=== PATIENT | female | born 1960 | race Caucasian/White ===

== ENCOUNTER → 2019-05-08 13:28 | Outpatient (CLI) | payer OTHER, SELFPAY ==
--- NOTE | 2019-05-08 | DI.MRI.S_ITS ---
PROCEDURE: MR HAND LT WO/W CON INDICATIONS: Left wrist swelling. Left hand pain. Arthritis TECHNIQUE: Coronal and axial T1 spin echo and T2 fast spin echo with fat saturation. Post-contrast coronal and axial T1 spin echo with fat saturation images through the left hand and wrist. COMPARISON: None. FINDINGS: Image quality: Excellent. Bones and cartilage: There is no marrow edema. No fracture or dislocation. Intraosseous cyst formation involving radial aspect of second metacarpal neck is seen. No gross bony erosive changes or area of abnormal intraosseous enhancement. Synovium: There is mild edema and contrast enhancement surrounding the extensor carpi ulnaris tendon at the level of the proximal carpal rows suggestive of tenosynovitis. No other area of abnormal soft tissue enhancement is seen. Soft tissues: Rest of the left wrist tendons and ligaments are grossly intact. IMPRESSION: 1. Intraosseous cyst formation involving left second metacarpal head as above, no abnormal intraosseous enhancement. No definite bony erosive changes. 2. Finding is suggestive of tenosynovitis involving the extensor carpi ulnaris tendon at the level of proximal carpal row. No other area of abnormal soft tissue enhancement is seen. Dictated by: Ronen Mayen M.D. on 05/08/2019 at 18:10 Approved by: Ronen Mayen M.D. on 05/08/2019 at 18:15
--- NOTE | 2019-05-08 | DI.MRI.S_ITS ---
PROCEDURE: MR HAND RT WO/W CON INDICATIONS: Right hand pain. Arthritis TECHNIQUE: Coronal and axial T1 spin echo and T2 fast spin echo with fat saturation. Post-contrast coronal and axial T1 spin echo with fat saturation images through the right hand and wrist. COMPARISON: None. FINDINGS: Image quality: Excellent. Bones and cartilage: The examination of right hand and wrist osseous structures shows no marrow edema. No fracture or dislocation. No gross bony erosive changes are noted. No area of abnormal intraosseous enhancement. Synovium: No significant joint effusion is seen. There is mild thickening involving extensor pollicis longus tendon, extensor digitorum and indices tendons as well as extensor digiti minimi tendon over dorsal aspect of distal carpal row with surrounding soft tissue edema and enhancement suggestive of tenosynovitis. Soft tissues: No evidence of extensor or flexor tendon rupture. No other area of abnormal enhancement. Visualized wrist ligaments are grossly intact. IMPRESSION: 1. Findings suggestive of low-grade tenosynovitis over dorsal aspect of extensor tendons as described above. 2. No marrow edema. No gross bony erosive changes. No evidence of tendon or ligament rupture. Dictated by: Ronen Mayen M.D. on 05/08/2019 at 18:18 Approved by: Ronen Mayen M.D. on 05/08/2019 at 18:22
== END ==
PROVIDERS: PCP Family Medicine; Visit Provider Internal Medicine Rheumatology
DX: M25.432 Effusion, left wrist (principal); M79.642 Pain in left hand; M79.641 Pain in right hand
CPT/HCPCS: 73220; A9579

== ENCOUNTER → 2019-07-04 15:53 | Outpatient (CLI) | payer OTHER, SELFPAY ==
--- NOTE | 2019-07-04 | DI.MRI.S_ITS ---
PROCEDURE: MR KNEE RT WO CON INDICATIONS: RT KNEE PAIN TECHNIQUE: Noncontrast sagittal PD fast spin echo and T2 fast spin echo with fat saturation, sagittal 3-D FLASH with fat saturation; coronal T1 spin echo and PD fast spin echo with fat saturation, and axial PD fast spin echo with fat saturation through the knee. COMPARISON: [facility], CR, XR KNEE 4+ VIEWS BILATERAL, 03/30/2019, 10:26. FINDINGS: Image quality: Excellent. Menisci: Medial meniscus is intact. There is amorphous high signal intensity within the free edge of the lateral meniscal body, demonstrate superior and inferior articular surface extension, indicating degenerative tearing. Cruciate ligaments: The anterior and posterior cruciate ligaments appear intact. High T2 signal intensity along the course of the anterior cruciate ligament is present. Medial structures: The medial collateral ligament appears intact. Visualized portions of the pes anserinus tendons appear normal. No abnormal bursal fluid. Lateral structures: The lateral collateral ligament, long and short heads of the biceps femoris tendon appear intact. The popliteus tendon appears normal. Iliotibial band appears normal. Anterior structures: The quadriceps and patellar tendons appear intact. Patellar alignment is normal. Mild T2 signal elevation within the patellar tendon at the patellar insertion site. No femoral trochlear dysplasia or ventral trochlear prominence. No edema in the infrapatellar fat pad. Bones and cartilage: No bone marrow contusions or fractures. There is mild tricompartmental periarticular osteophyte formation. There is moderate diffuse articular cartilage loss overlying the weightbearing aspects of the medial femoral condyle and medial tibial plateau. Severe articular cartilage loss overlies the patellar apex, as well as the adjacent aspects of the medial and lateral patellar facets. Joint space: There is a small knee joint effusion and a trace Morrison's cyst. Small ganglion cyst along the popliteus. Normal appearing synovial plicae are incidentally noted. IMPRESSION: 1. Tricompartmental osteoarthritis with associated articular cartilage loss. 2. Lateral meniscal tearing. 3. Mild patellar tendinitis. 4. Small knee joint effusion. Trace Morrison's cyst. 5. Myxoid degeneration of the anterior cruciate ligament. Dictated by: Max Fink M.D. on 07/04/2019 at 16:32 Approved by: Max Fink M.D. on 07/04/2019 at 16:35
== END ==
PROVIDERS: PCP Family Medicine; Visit Provider Family Medicine
DX: M25.561 Pain in right knee (principal); M17.11 Unilateral primary osteoarthritis, right knee; M76.51 Patellar tendinitis, right knee; M25.461 Effusion, right knee
CPT/HCPCS: 73721

== ENCOUNTER → 2020-12-10 13:49 | Outpatient (CLI) | payer OTHER, SELFPAY ==
[2020-12-10 14:11] LABS: COVID19 -Nasal RAPID Negative (Negative)
== END ==
PROVIDERS: PCP Family Medicine; Visit Provider Surgery
DX: Z01.812 Encounter for preprocedural laboratory examination (principal); Z20.822 Contact with and (suspected) exposure to COVID-19
CPT/HCPCS: 87635; C9803

== ENCOUNTER 2020-12-11 14:27 | Day surgery (SDC) | payer OTHER, SELFPAY ==
[2020-12-11 15:27] VITALS: BP 151/83; PULSE 76; RESP 18; TEMP 36.4; O2SAT 99; BMI 28.8
[2020-12-11] MEDS: LACTATED RINGERS 1,000 ML 200 ML IV (16:00)
--- NOTE | 2020-12-11 16:04 | PM.PREOP ---
Pre-operative Note Interval Note History & Physical reviewed/Exam performed by Physician: Yes Changes to H&P: No
[2020-12-11] MEDS: MIDAZOLAM 5 MG/5 ML VIAL IV (16:49)
[2020-12-11] MEDS: fentaNYL 250 MCG/5 ML INJ IV (16:49)
--- NOTE | 2020-12-11 16:49 | P.OP.ENDO_ITS ---
Operative Date/Time/Diagnoses Date of procedure: 12/11/20 Time of procedure: 16:50 Pre-op diagnosis: Rectal bleeding Post-op diagnosis: same Procedure & Clinicians Study performed: Colonoscopy, hemorrhoidal banding Same procedure as scheduled: Yes Indications: Rectal bleeding, family history of colon Surgeon: Jarrett Berry Procedure Notes Procedure in detail: Medications: Conscious sedation using 10mg IV midazolam and 300mcg IV of fentanyl The history and physical was performed/updated and the patient is ASA class is 2. The procedure was discussed in detail with the patient. Potential risks complications including infection, bleeding, missed diagnosis, perforation, need for surgery, and were explained. Their questions were answered and informed consent was obtained. Patient was brought to the procedure room and placed standard monitoring equipment. The patient's vital signs were monitored continuously throughout the entire procedure. Prior to starting time-out was performed. The patient was placed in the left lateral recumbent position. Procedural sedation was administered. Examination began with a thorough inspection of the perianal area there was no evidence of fissures, fistulae, external hemorrhoids or cutaneous malignancy. The colonoscopy scope was then placed into the anal canal and was advanced to the cecum, which was identified by the ileocecal valve, the appendiceal orifice and the confluence of the taenia. The scope was then slowly withdrawn examining colon thoroughly in all directions, irrigating it of any residual stool. 1. No masses polyps 2. Sigmoid diverticulosis 3. Grade 3 internal hemorrhoids The right anterior and left lateral hemorrhoidal pedicles of freely prolapsed and were quite friable. They were grasped with an Allis elevated and then the base was doubly ligated. Patient tolerated the procedure well. The patient tolerated the procedure well. They will be discharged once criteria are met. The prep was of good/excellent quality. The withdrawl time was 7 min utes. The sedation time was 33minutes. Complications: none Impression: Diverticulosis, hemorrhoids Post-procedure Recommendations: Colonscopy in 5 years and High fiber diet Disposition: same day surgery
[2020-12-11 16:51] VITALS: BP 171/94; PULSE 73; RESP 17; TEMP 36.9; O2SAT 98
[2020-12-11 16:56] VITALS: BP 173/92; PULSE 70; RESP 22; O2SAT 97
[2020-12-11 17:01] VITALS: BP 159/86; PULSE 72; RESP 15; O2SAT 100
[2020-12-11 17:05] VITALS: BP 158/87; PULSE 77; RESP 13; TEMP 37.7; O2SAT 99
[2020-12-11 17:12] VITALS: BP 159/89; PULSE 76; RESP 16; TEMP 36.7; O2SAT 100
== END 2020-12-11 17:22 | disposition home or self-care (01) ==
PROVIDERS: PCP Family Medicine; Referring Provider Surgery; Visit Provider Surgery
PROC: 0DJD8ZZ Inspection of Lower Intestinal Tract, Via Natural or Artificial Opening Endoscopic (ICD-10-PCS; CPT 45378; principal; 2020-12-11 16:00)
DX: K57.30 Diverticulosis of large intestine without perforation or abscess without bleeding (principal); K64.2 Third degree hemorrhoids
CPT/HCPCS: 46221; 45378; J2250; J3010

== ENCOUNTER 2020-12-18 12:57 | Emergency (ER) | payer OTHER, SELFPAY ==
[2020-12-18] VITALS (7 sets, daily range): BP systolic 154–181; BP diastolic 74–86; PULSE 71–88; RESP 15–20; TEMP 37; O2SAT 96–100; BMI 28.8
[2020-12-18 13:28] LABS: Add Manual Diff / Slide Review NO; Basophils Absolute Auto 100 /uL (0-100); Basophils Percent Auto 0.9 % (0-2); Eosinophils Absolute Auto 100 /uL (0-450); Eosinophils Percent Auto 1.9 % (2-4); Hematocrit 32.4 % (36-46); Hemoglobin 10.6 g/dL (12.0-16.0); Lymphocytes Absolute Auto 1000 /uL (1100-4500); Lymphocytes Percent Auto 18.1 % (25-40); Mean Corpuscular HGB Conc 32.7 % (30-36); Mean Corpuscular Hemoglobin 27.7 PG (26-34); Mean Corpuscular Volume 84.8 fL (80-100); Monocytes Absolute Auto 400 /uL (0-900); Monocytes Percent Auto 7.3 % (3-14); Neutrophils Absolute Auto 4000 /uL (1500-7000); Neutrophils Percent Auto 71.8 % (50-75); Platelet Count 369 X10^3/uL (150-400); Red Blood Cell Count 3.82 X10^6/uL (4.0-5.2); Red Cell Distribution Width 13.6 % (11.6-14.8); White Blood Cell Count 5.6 X10^3/uL (4.5-11.0)
--- NOTE | 2020-12-18 13:31 | ED_ITS ---
HPI - GI Bleed <TRISTAN Gongora - Last Filed: 12/18/20 15:32> General Chief complaint: GI Bleed Stated complaint: colonoscopy last week, still bleeding rectally Time Seen by Provider: 12/18/20 13:14 Source: patient and family Mode of arrival: Ambulatory Limitations: no limitations History of Present Illness HPI Narrative: The patient is a 6-year-old female current everyday smoker who presents with her for chief complaint of GI bleeding. She states that she had a colonoscopy last as well as hemorrhoid banding. She states that the hemorrhoid bands fell out the next day so there are not specially helpful. She denies any fevers muscle aches or chills. She complains of abdominal cramping, but states ?nothing significant?. She does note that she has not had a good bowel movement for the past week, she initially increase MiraLax etcetera, but then spoke to a account specialist who states that it is ?poison to her system? so she stopped using that and started using salts instead. She notes that she is passing blood clots. She states that she is feeling several l arge menstrual pads per day. She does note some lightheadedness and dizziness yesterday. Denies any chest pain or shortness of breath. She states that she has not been dizzy for a few days does not particularly concerned about that. Related Data Home Medications Medication Instructions Recorded Confirmed ascorbate calcium (vitamin C) 500 500 mg PO DAILY 11/24/20 12/11/20 mg tablet iodine 150 mcg tablet 150 mcg PO DAILY 11/24/20 12/11/20 tramadol 50 mg tablet 50 mg PO BID PRN 11/24/20 12/11/20 vitamin B complex 1 tab PO DAILY 11/24/20 12/11/20 vitamin E 200 unit capsule 200 unit PO DAILY 11/24/20 12/11/20 zinc 50 mg tablet 50 mg PO BID 11/24/20 12/11/20 acetaminophen 1,000 mg PO BID 12/11/20 12/11/20 Allergies Allergy/AdvReac Type Severity Reaction Status Date / Time codeine Allergy Rash Verified 12/18/20 13:09 Review of Systems <TRISTAN Gongora - Last Filed: 12/18/20 15:32> Review of Systems Narrative: GENERAL: Denies chills, fatigue, malaise, fever, sweats. HEENT: Denies sinus pain, ear pain, sore throat, difficulty swallowing, dizzine ss. RESPIRATORY: Denies dyspnea, cough, wheezing, hemoptysis, sputum. CARDIOVASCULAR: Denies chest pain, palpitations, orthopnea, edema, GASTROINTESTINAL: See HPI : Denies dysuria, frequency, incontinence, hematuria, urinary retention. MUSCULOSKELETAL: denies weakness, joint pain, or bony pain SKIN: Denies rash, skin lesions, or other NEUROLOGIC: Denies weakness, headache, numbness, change in speech, confusion, seizures, incoordination. PSYCHIATRIC: No concerning psychosocial issues. 12 point review of systems is negative except for those stated above Patient History <TRISTAN Gongora - Last Filed: 12/18/20 15:32> Medical History Arthritis Hearing loss History of sinus problem Surgical History History of colonoscopy History of dental surgery Family History Father Colon cancer Hypertension Mother Hypertension Son Gallstones Social History marital status: household members: spouse occupational status: employed Smoking Status: Current every day smoker alcohol intake: never substance use type: does not use Smoking Status: Current every day smoker tobacco type: vaping alcohol intake frequency: holidays/special occasions only Substance Use Type: does not use Exam <TRISTAN Gongora - Last Filed: 12/18/20 15:32> Narrative Exam Narrative: GENERAL: This is a well-nourished, well-developed patient, in no acute distress with at bedside HEAD: Atraumatic. Normocephalic. No temporal or scalp tenderness. EYES: Pupils equal round and reactive. Extraocular motions intact. No scleral icterus. No injection or drainage. ENT: Nose without bleeding, purulent drainage or septal hematoma. Wearing a mask. Airway patent. NECK: Trachea midline. No JVD or lymphadenopathy. Supple, nontender, no meningeal signs. CARDIOVASCULAR: Regular rate and rhythm RESPIRATORY: Clear to auscultation. Breath sounds equal bilaterally. No wheezes, rales, or rhonchi. No cough. No increased respiratory effort. No accessory muscle use. GASTROINTESTINAL: Abdomen soft, non-tender, nondistended. No hepato- splenomegaly, or palpable masses. No guarding. bright red blood per rectum noted on finger on rectal exam with Jenn Neves RN at [facility] EXTREMITIES: No clubbing, cyanosis, or edema. No joint tenderness, effusion, or edema noted. BACK: Nontender without deformity or crepitance. No flank tenderness. NEURO: AOx3. SKIN: No rash or erythema on visible skin Initial Vital Signs Initial Vital Signs: Vital Signs Temperature 98.6 F 12/18/20 13:05 Pulse Rate 88 12/18/20 13:05 Respiratory Rate 15 12/18/20 13:05 Blood Pressure 181/82 H 12/18/20 13:05 Pulse Oximetry 100 12/18/20 13:05 <Meaghan Thorne DO - Last Filed: 12/18/20 19:36> Initial Vital Signs Initial Vital Signs: Vital Signs Temperature 98.6 F 12/18/20 13:05 Pulse Rate 88 12/18/20 13:05 Respiratory Rate 15 12/18/20 13:05 Blood Pressure 181/82 H 12/18/20 13:05 Pulse Oximetry 100 12/18/20 13:05 Scores <TRISTAN Gongora - Last Filed: 12/18/20 15:32> GCS Lupe coma scale eye opening: Spontaneous Lupe coma scale verbal response: Orientated Lupe coma scale motor response: Obey commands [place] coma scale total score: 15 qSOFA Altered Mental Status (GCS <15): No Respiratory rate greater than/equal to 22: No Systolic blood pressure less than or equal to 100: No qSOFA Total: 0 0-1 Not High Risk 1-3 High risk Course <TRISTAN Gongora - Last Filed: 12/18/20 15:32> Orders Ordered: ED Orders 12/18/20 13:09 EKG-12 Lead Stat 12/18/20 13:20 Complete Blood Count AUTO DIFF Stat Comprehensive Metabolic Panel Stat Partial Thromboplastin Time Stat Prothrombin Time INR Stat Type and Screen Stat 12/18/20 14:03 CT abdomen pelvis w con Stat Vital Signs Vital signs: Vital Signs - 8 hr 12/18/20 13:05 12/18/20 13:07 12/18/20 13:30 Temperature 98.6 F Pulse Rate 88 84 80 Respiratory Rate 15 Blood Pressure 181/82 H Pulse Oximetry 100 99 100 12/18/20 13:32 12/18/20 14:00 12/18/20 14:18 Temperature Pulse Rate 78 71 74 Respiratory Rate 20 18 15 Blood Pressure 165/77 H 154/74 H 181/86 H Pulse Oximetry 99 96 99 12/18/20 14:30 Temperature Pulse Rate 71 Respiratory Rate 17 Blood Pressure 154/74 H Pulse Oximetry 97 <Meaghan Thorne DO - Last Filed: 12/18/20 19:36> Orders Ordered: ED Orders 12/18/20 13:09 EKG-12 Lead Stat 12/18/20 13:20 Complete Blood Count AUTO DIFF Stat Comprehensive Metabolic Panel Stat Partial Thromboplastin Time Stat Prothrombin Time INR Stat Type and Screen Stat 12/18/20 14:03 CT abdomen pelvis w con Stat Vital Signs Vital signs: Vital Signs - 8 hr 12/18/20 13:05 12/18/20 13:07 12/18/20 13:30 Temperature 98.6 F Pulse Rate 88 84 80 Respiratory Rate 15 Blood Pressure 181/82 H Pulse Oximetry 100 99 100 12/18/20 13:32 12/18/20 14:00 12/18/20 14:18 Temperature Pulse Rate 78 71 74 Respiratory Rate 20 18 15 Blood Pressure 165/77 H 154/74 H 181/86 H Pulse Oximetry 99 96 99 12/18/20 14:30 Temperature Pulse Rate 71 Respiratory Rate 17 Blood Pressure 154/74 H Pulse Oximetry 97 MDM - GI Bleed <TRISTAN Gongora - Last Filed: 12/18/20 15:32> Lab Data Attestation: I reviewed the patient's lab results. Result diagrams: 12/18/20 13:20 12/18/20 13:20 Labs: Lab Results 12/18/20 12/18/20 12/18/20 Range/Units 13:20 13:20 13:20 WBC 5.6 (4.5-11.0) X10^3/uL RBC 3.82 L (4.0-5.2) X10^6/uL Hgb 10.6 L (12.0-16.0) g/dL Hct 32.4 L (36-46) % MCV 84.8 (80-100) fL MCH 27.7 (26-34) PG MCHC 32.7 (30-36) % RDW 13.6 (11.6-14.8) % Plt Count 369 (150-400) X10^3/uL Neut % (Auto) 71.8 (50-75) % Lymph % (Auto) 18.1 L (25-40) % Harvey % (Auto) 7.3 (3-14) % Eos % (Auto) 1.9 L (2-4) % Baso % (Auto) 0.9 (0-2) % Neut # (Auto) 4000 (3526-3159) /uL Lymph # (Auto) 1000 L (6586-4506) /uL Harvey # (Auto) 400 (0-900) /uL Eos # (Auto) 100 (0-450) /uL Baso # (Auto) 100 (0-100) /uL PT 12.8 H (10.1-12.7) SECONDS INR 1.2 (0.9-1.3) APTT 35 (26.4-36.2) SECONDS Sodium 143 (137-145) mmol/L Potassium 3.2 L (3.4-5.1) mmol/L Chloride 106 (98-107) mmol/L Carbon Dioxide 28 (22-32) mmol/L BUN 10 (7-17) mg/dL Creatinine 0.53 (0.52-1.04) mg/dL Estimated GFR > 60.0 (>60) mL/min BUN/Creatinine Ratio 18.9 (6-22) Glucose 160 H (80-110) mg/dL Calcium 9.3 (8.4-10.2) mg/dL Total Bilirubin 0.3 (0.2-1.3) mg/dL AST 28 (14-36) IU/L ALT 15 (<35) IU/L Alkaline Phosphatase 68 (38-126) U/L Total Protein 7.7 (6.3-8.2) g/dL Albumin 4.3 (3.5-5.0) g/dL Globulin 3.4 (1.7-4.1) g/dL Albumin/Globulin Ratio 1.3 (1.0-2.8) Blood Type Antibody Screen 12/18/20 Range/Units 13:20 WBC (4.5-11.0) X10^3/uL RBC (4.0-5.2) X10^6/uL Hgb (12.0-16.0) g/dL Hct (36-46) % MCV (80-100) fL MCH (26-34) PG MCHC (30-36) % RDW (11.6-14.8) % Plt Count (150-400) X10^3/uL Neut % (Auto) (50-75) % Lymph % (Auto) (25-40) % Harvey % (Auto) (3-14) % Eos % (Auto) (2-4) % Baso % (Auto) (0-2) % Neut # (Auto) (9189-7159) /uL Lymph # (Auto) (4665-0918) /uL Harvey # (Auto) (0-900) /uL Eos # (Auto) (0-450) /uL Baso # (Auto) (0-100) /uL PT (10.1-12.7) SECONDS INR (0.9-1.3) APTT (26.4-36.2) SECONDS Sodium (137-145) mmol/L Potassium (3.4-5.1) mmol/L Chloride (98-107) mmol/L Carbon Dioxide (22-32) mmol/L BUN (7-17) mg/dL Creatinine (0.52-1.04) mg/dL Estimated GFR (>60) mL/min BUN/Creatinine Ratio (6-22) Glucose (80-110) mg/dL Calcium (8.4-10.2) mg/dL Total Bilirubin (0.2-1.3) mg/dL AST (14-36) IU/L ALT (<35) IU/L Alkaline Phosphatase (38-126) U/L Total Protein (6.3-8.2) g/dL Albumin (3.5-5.0) g/dL Globulin (1.7-4.1) g/dL Albumin/Globulin Ratio (1.0-2.8) Blood Type A Positive Antibody Screen Negative Imaging Data CT scan - abdomen/pelvis: Radiologist's Impression: [address] [id number] Scan ReportSigned Patient: Camila Shook [facility]#: [id number]: 1960cct:[id number]/Sex: 60 / FDate of Service: 12/18/20Loc: EDAccession Number: [id number] Procedure: CT abdomen pelvis w con Ordering Provider: Matilde Meng [facility]- PROCEDURE: CT ABDOMEN PELVIS W CON INDICATIONS: post scope, abd pain, bleeding TECHNIQUE: After the administration of intravenous contrast, 5 mm thick sections acquired from the diaphragm to the symphysis. 5 mm coronal and sagittal reformats were acquired. For radiation dose reduction, the following was used: automated exposure control, adjustment of mA and/or kV according to patient size. COMPARISON: None. FINDINGS: Image quality: Excellent. ABDOMEN: Lung bases: Lung bases are clear. Heart size is normal. Solid organs: Liver is normal in size and enhancement. Gallbladder is normal. Biliary system is non dilated. Pancreas enhances normally. Spleen is normal in size and enhancement. No adrenal nodules. Kidneys demonstrate normal size and enhancement, without hydronephrosis. Peritoneum and bowel: Stomach is mildly distended with an air-fluid level. Duodenum may be mildly thickened. Bowel loops demonstrate normal caliber. There is a moderate amount of stool in colon. No free fluid or air. Nodes and vessels: No retroperitoneal or mesenteric adenopathy by size criteria. Aorta and inferior vena cava are normal in size. Moderate atherosclerotic calcifications. Miscellaneous: No ventral hernias. PELVIS: Genitourinary: Bladder wall thickness is normal. Uterus is normal. There is a 4.4 x 5.5 cm cyst in the right ovary. A 2.5 cm cyst is seen in the left ovary. No pathological free-fluid in pelvis. Miscellaneous: No inguinal hernias or adenopathy. Bones: No suspicious bony lesions. No vertebral body compression fractures. Degenerative changes in lumbar spine. IMPRESSION: 1. No free air to suggest bowel perforation. 2. Probable mild thickening of duodenum although the appearance could be caused by inadequate distention. 3. 4.4 x 5.5 cm right ovarian cyst. Recommend pelvic ultrasound for follow-up. Dictated by: Jyoti Fairbanks M.D. on 12/18/2020 at 14:31 Approved by: Jyoti Fairbanks M.D. on 12/18/2020 at 14:37 MDM Narrative Medical decision making narrative: The patient is a 60-year-old female who presents with a chief complaint of bright red blood per rectum a few days after colonoscopy and hemorrhoid banding. Overall she appears well and nontoxic, she is not tachycardic, afebrile and in no acute distress on exam. She does have bright red blood noted on rectal exam, CT abdomen pelvis shows slight duodenal thickening and an ovarian cyst which is patient is aware of. The patient is noted to have leukocytosis on her labs as well as a hemoglobin of 10.6. I did speak with Dr. Berry, who did the patient's hemorrhoid banding and colonoscopy a few days ago. He would like to have her follow up in office. Did discuss this with the patient she said she might not be able to due to travel, I encouraged her to make all attempts to follow-up as soon as possible. I did discuss that it is up to her to schedule this and she is okay with that. I did encourage her to reconsider use of MiraLax for constipation, but she states she would rather not. I discussed at length that she can come back to the emergency department for any acute concerns such as lightheadedness, dizziness significant bleeding etcetera. Patient has no questions or concerns upon discharge denies any lightheadedness or dizziness on exam and ambulate steadily out of the department. <Meaghan Thorne, DO - Last Filed: 12/18/20 19:36> Lab Data Labs: Lab Results 12/18/20 12/18/20 12/18/20 Range/Units 13:20 13:20 13:20 WBC 5.6 (4.5-11.0) X10^3/uL RBC 3.82 L (4.0-5.2) X10^6/uL Hgb 10.6 L (12.0-16.0) g/dL Hct 32.4 L (36-46) % MCV 84.8 (80-100) fL MCH 27.7 (26-34) PG MCHC 32.7 (30-36) % RDW 13.6 (11.6-14.8) % Plt Count 369 (150-400) X10^3/uL Neut % (Auto) 71.8 (50-75) % Lymph % (Auto) 18.1 L (25-40) % Harvey % (Auto) 7.3 (3-14) % Eos % (Auto) 1.9 L (2-4) % Baso % (Auto) 0.9 (0-2) % Neut # (Auto) 4000 (5728-1313) /uL Lymph # (Auto) 1000 L (4656-8280) /uL Harvey # (Auto) 400 (0-900) /uL Eos # (Auto) 100 (0-450) /uL Baso # (Auto) 100 (0-100) /uL PT 12.8 H (10.1-12.7) SECONDS INR 1.2 (0.9-1.3) APTT 35 (26.4-36.2) SECONDS Sodium 143 (137-145) mmol/L Potassium 3.2 L (3.4-5.1) mmol/L Chloride 106 (98-107) mmol/L Carbon Dioxide 28 (22-32) mmol/L BUN 10 (7-17) mg/dL Creatinine 0.53 (0.52-1.04) mg/dL Estimated GFR > 60.0 (>60) mL/min BUN/Creatinine Ratio 18.9 (6-22) Glucose 160 H (80-110) mg/dL Calcium 9.3 (8.4-10.2) mg/dL Total Bilirubin 0.3 (0.2-1.3) mg/dL AST 28 (14-36) IU/L ALT 15 (<35) IU/L Alkaline Phosphatase 68 (38-126) U/L Total Protein 7.7 (6.3-8.2) g/dL Albumin 4.3 (3.5-5.0) g/dL Globulin 3.4 (1.7-4.1) g/dL Albumin/Globulin Ratio 1.3 (1.0-2.8) Blood Type Antibody Screen 12/18/20 Range/Units 13:20 WBC (4.5-11.0) X10^3/uL RBC (4.0-5.2) X10^6/uL Hgb (12.0-16.0) g/dL Hct (36-46) % MCV (80-100) fL MCH (26-34) PG MCHC (30-36) % RDW (11.6-14.8) % Plt Count (150-400) X10^3/uL Neut % (Auto) (50-75) % Lymph % (Auto) (25-40) % Harvey % (Auto) (3-14) % Eos % (Auto) (2-4) % Baso % (Auto) (0-2) % Neut # (Auto) (9038-5237) /uL Lymph # (Auto) (6942-7096) /uL Harvey # (Auto) (0-900) /uL Eos # (Auto) (0-450) /uL Baso # (Auto) (0-100) /uL PT (10.1-12.7) SECONDS INR (0.9-1.3) APTT (26.4-36.2) SECONDS Sodium (137-145) mmol/L Potassium (3.4-5.1) mmol/L Chloride (98-107) mmol/L Carbon Dioxide (22-32) mmol/L BUN (7-17) mg/dL Creatinine (0.52-1.04) mg/dL Estimated GFR (>60) mL/min BUN/Creatinine Ratio (6-22) Glucose (80-110) mg/dL Calcium (8.4-10.2) mg/dL Total Bilirubin (0.2-1.3) mg/dL AST (14-36) IU/L ALT (<35) IU/L Alkaline Phosphatase (38-126) U/L Total Protein (6.3-8.2) g/dL Albumin (3.5-5.0) g/dL Globulin (1.7-4.1) g/dL Albumin/Globulin Ratio (1.0-2.8) Blood Type A Positive Antibody Screen Negative Discharge Plan Departure Patient Disposition: Home Clinical Impression: Rectal bleeding Instructions: Constipation (Alternative Therapy), DI for Constipation, DI for Rectal Bleeding Activity Restrictions/Additional Instructions: Thank you for trusting us with your care today. As discussed, your vitals are reassuring, your lab work is also reassuring, however you need follow-up with Dr. Berry. Please arrange for follow-up with him as soon as possible. As discussed, please come back to the emergency department for any acute concerns. Overall, please rest and push fluids. Prescriptions: No Action tramadol 50 mg tablet 50 mg PO BID PRN (Reason: Back Pain) RF: 0 vitamin B complex [B Complex-Vitamin B12] Tablet 1 tab PO DAILY RF: 0 ascorbate calcium (vitamin C) 500 mg tablet 500 mg PO DAILY RF: 0 vitamin E 200 unit capsule 200 unit PO DAILY RF: 0 iodine 150 mcg tablet 150 mcg PO DAILY RF: 0 zinc 50 mg tablet 50 mg PO BID RF: 0 acetaminophen 500 mg Capsule 1,000 mg PO BID RF: 0 Referrals: Jarrett Berry MD [Physician] - Major Sanford MD [Primary Care Provider] - <Meaghan Thorne DO - Last Filed: 12/18/20 19:36> Cosign ED Attending Razature Attestation: I was immediately available in the department for consultation. Documentation has been reviewed. I agree with assessment and plan.
[2020-12-18 13:37] LABS: INR 1.2 (0.9-1.3); Prothrombin Time 12.8 SECONDS (10.1-12.7)
[2020-12-18 13:40] LABS: PTT Partial Thromboplastin Tim 35 SECONDS (26.4-36.2)
[2020-12-18 13:43] LABS: Alanine Aminotransferase 15 IU/L (<35); Albumin 4.3 g/dL (3.5-5.0); Albumin Globulin Ratio 1.3 (1.0-2.8); Alkaline Phosphatase 68 U/L (38-126); Aspartate Aminotransferase 28 IU/L (14-36); BUN Creatinine Ratio 18.9 (6-22); Bilirubin Total 0.3 mg/dL (0.2-1.3); Blood Urea Nitrogen 10 mg/dL (7-17); Calcium 9.3 mg/dL (8.4-10.2); Carbon Dioxide 28 mmol/L (22-32); Chloride 106 mmol/L (98-107); Estimated Glomerular Filt Rate > 60.0 mL/min (>60); Globulin 3.4 g/dL (1.7-4.1); Glucose 160 mg/dL (80-110); HEMOLYSIS < 15 (0-50); Potassium 3.2 mmol/L (3.4-5.1); Sodium 143 mmol/L (137-145); Total Protein 7.7 g/dL (6.3-8.2)
--- NOTE | 2020-12-18 14:03 | DI.CT.S_ITS ---
PROCEDURE: CT ABDOMEN PELVIS W CON INDICATIONS: post scope, abd pain, bleeding TECHNIQUE: After the administration of intravenous contrast, 5 mm thick sections acquired from the diaphragm to the symphysis. 5 mm coronal and sagittal reformats were acquired. For radiation dose reduction, the following was used: automated exposure control, adjustment of mA and/or kV according to patient size. COMPARISON: None. FINDINGS: Image quality: Excellent. ABDOMEN: Lung bases: Lung bases are clear. Heart size is normal. Solid organs: Liver is normal in size and enhancement. Gallbladder is normal. Biliary system is non dilated. Pancreas enhances normally. Spleen is normal in size and enhancement. No adrenal nodules. Kidneys demonstrate normal size and enhancement, without hydronephrosis. Peritoneum and bowel: Stomach is mildly distended with an air-fluid level. Duodenum may be mildly thickened. Bowel loops demonstrate normal caliber. There is a moderate amount of stool in colon. No free fluid or air. Nodes and vessels: No retroperitoneal or mesenteric adenopathy by size criteria. Aorta and inferior vena cava are normal in size. Moderate atherosclerotic calcifications. Miscellaneous: No ventral hernias. PELVIS: Genitourinary: Bladder wall thickness is normal. Uterus is normal. There is a 4.4 x 5.5 cm cyst in the right ovary. A 2.5 cm cyst is seen in the left ovary. No pathological free-fluid in pelvis. Miscellaneous: No inguinal hernias or adenopathy. Bones: No suspicious bony lesions. No vertebral body compression fractures. Degenerative changes in lumbar spine. IMPRESSION: 1. No free air to suggest bowel perforation. 2. Probable mild thickening of duodenum although the appearance could be caused by inadequate distention. 3. 4.4 x 5.5 cm right ovarian cyst. Recommend pelvic ultrasound for follow-up. Dictated by: Jyoti Fairbanks M.D. on 12/18/2020 at 14:31 Approved by: Jyoti Fairbanks M.D. on 12/18/2020 at 14:37
== END 2020-12-18 15:24 | disposition home or self-care (01) ==
PROVIDERS: Emergency Medicine; Emergency Provider Nurse Practitioner Family; PCP Family Medicine
DX: K62.5 Hemorrhage of anus and rectum (principal)
CPT/HCPCS: 36415; 74177; 80053; 85025; 85610; 85730; 86850; 86900; 86901; 93005; 93010; 99284

== ENCOUNTER → 2021-01-19 13:51 | Outpatient (CLI) | payer OTHER, SELFPAY ==
[2021-01-19 14:42] LABS: COVID19 -Nasal RAPID Negative (Negative)
== END ==
PROVIDERS: PCP Family Medicine; Visit Provider Surgery
DX: Z20.822 Contact with and (suspected) exposure to COVID-19 (principal)
CPT/HCPCS: 87635; C9803

== ENCOUNTER 2021-01-20 11:33 | Day surgery (SDC) | payer OTHER, SELFPAY ==
[2021-01-02 09:01] VITALS: BMI 28.8
[2021-01-20] VITALS (13 sets, daily range): BP systolic 154–182; BP diastolic 75–84; PULSE 76–92; RESP 14–18; TEMP 36.3–36.8; O2SAT 95–100; BMI 28.8
--- NOTE | 2021-01-20 | PATH_ITS ---
[facility] Accession Number: [id number] . 01 Material submitted: . hemorrhoids - HEMORRHOIDS . 01 Clinical history: . HEMORRHOIDECTOMY . 02 Diagnosis: Hemorrhoids, hemorrhoidectomy: Invasive squamous cell carcinoma. Please see Surgical Pathology Cancer Case Summary. . SURGICAL PATHOLOGY CANCER CASE SUMMARY: . Anus: Local excision: Specimen: Hemorrhoids. Procedure: Hemorrhoidectomy, not otherwise specified. Specimen integrity: Fragmented, approximately ten of fifteen pieces positive for squamous cell carcinoma. Tumor site: Not specified; please correlate with clinical findings. Tumor size: Greatest dimension: At least 1.2 cm, however size is indeterminate due to involvement by separate, multiple tissue fragments; please correlate with clinical findings. Histologic type: Squamous cell carcinoma. Histologic grade: G2 / moderately differentiated. . Tumor extension: At least into lamina propria; tissue orientation is obscuring. . Margins: Deep margin: Invasive carcinoma present focally at deep margins. Mucosal margin: Cannot be assessed due to the fragmented nature of the specimen. However, rare portions of rectal mucosa are negative for invasive squamous carcinoma or dysplasia. . Treatment effect: No known presurgical therapy. Lymphovascular invasion: Tumor present in possible thrombosed vessel. Perineural invasion: Not identified. . Pathologic stage classification (pTNM, AJCC 8th Edition): pTX pNX. [facility] 01/23/2021 1334 Local . 02 Comment: As part of routine quality assurance associate, this case was also reviewed by Dr. Wang, who agrees with the interpretation. . Results discussed with Dr. Kristi Lomas's nurse at approximately 1:01 p.m. on 01-23-21. Called back to modify grade / differentiation to G2 at approximately 1:30 p.m. . 02 Electronically signed: . Rachael Moser MD, Pathologist NPI- [id number] . 01 Gross description: . The specimen is received in formalin, labeled hemorrhoids and consists of multiple irregular del rosario-pink to del rosario-white mucosal tissue fragments measuring 3.5 x 3.5 x 1.2 cm in aggregate. The margins are inked blue. The fragments are serially sectioned and the specimen is entirely submitted in cassettes A1-A3. (EA:[id number]) /MRV 01/21/2021 1128 Local . 02 Pathologist provided ICD-10: D01.3, C44.520 . 02 CPT . 092891 Performed at: 01 [facility] [address] [place] [address], [place], [place] [id number] MD Scott Carvajal MD Phone: [phone] Performed at: 02 [facility] [address] [address] [place], [place] [id number] MD Lona Paul MD Phone: [phone]
[2021-01-20] MEDS: LACTATED RINGERS 1,000 ML 42 ML IV (12:30)
--- NOTE | 2021-01-20 12:44 | PM.PREOP ---
Pre-operative Note Interval Note History & Physical reviewed/Exam performed by Physician: Yes Changes to H&P: No
--- NOTE | 2021-01-20 13:22 | SUR.OPER ---
Prone on padded OR bed, head in foam head support, gel chest rolls, gel pad under knees, pillow under lower legs, toes free of pressure, arms secured on padded arm boards at <90 degrees abduction. Safety belt at thigh.
[2021-01-20] MEDS: BUPIVACAINE 0.25% (PF) VIAL 30 ML INJ (13:31)
[2021-01-20] MEDS: BUPIVACAINE LIPOSOME 266 MG/20 ML VIAL INJ (13:32)
[2021-01-20] MEDS: DIBUCAINE 1% OINT 28 GM 1 APPLIC TOP (13:33)
--- NOTE | 2021-01-20 13:56 | PM.OP.1 ---
Operative Date/Time/Diagnoses Date of procedure: 01/20/21 Time of procedure: 13:56 Pre-op diagnosis: Hemorrhoids Post-op diagnosis: same Procedure & Clinicians Procedure: Excisional hemorrhoidectomy Same procedure as scheduled: Yes Indications: Bleeding internal hemorrhoids, failed hemorrhoidal banding Surgeon: Jarrett Berry Click Yes if Unassisted: Yes Anesthesia Type: General Operative Notes Findings: Densely fibrotic left lateral perianal tissue, right anterior and posterior hemorrhoid pedicles freely prolapsing. Specimen(s): other (Hemorrhoids) Estimated Blood Loss (mL): 50 Procedure in detail: The patient was brought to the operating room placed supine on the table. Bilateral lower extremity compression devices were applied. General anesthesia was induced and they were intubated with an endotracheal tube. They were then placed into prone position and appropriately padded. They were then prepped and draped in usual sterile fashion. Time-out was performed. Rectal block was performed by injecting 20 mL of Exparel into the intersphincteric groove. An internal examination of the anal canal was made. The right anterior and right posterior freely prolapsed consistent with grade 3. The left lateral perianal tissue was densely fibrotic and friable, but there was no significant prolapsing hemorrhoidal tissue here. Beginning with the right anterior pedicle it was grasped elevated and excised with electrocautery off the internal sphincter. The mucosal defect was then closed with a running 3-0 Vicyrl suture. Hemostasis was checked. The procedure was then repeated for the right posterior. The specimens were passed off the field. Wound was irrigated with saline. Gelfoam coated in Dibucaine ointment 1% was then placed into the anal canal. Sponge and instrument counts were correct at the end of the procedure. They emerged from anesthesia were extubated and transferred to the postoperative care unit in stable condition. Complications: none Post-operative Condition: stable Disposition: same day surgery
== END 2021-01-20 15:15 | disposition home or self-care (01) ==
PROVIDERS: PCP Family Medicine; Referring Provider Surgery; Visit Provider Surgery
PROC: (CPT 46260; principal; 2021-01-20 13:15)
DX: K64.2 Third degree hemorrhoids (principal)
CPT/HCPCS: 46260; 82962; C9290; J0330; J1100; J2405; J2704; J3010

== ENCOUNTER → 2021-02-26 08:41 | Outpatient (CLI) | payer OTHER, SELFPAY ==
--- NOTE | 2021-02-26 08:43 | DI.MRI.S_ITS ---
PROCEDURE: MR PELIS WO/W CON INDICATIONS: anus squmous cell carcinoma TECHNIQUE: Noncontrast coronal T1 spin echo and STIR, sagittal T1 spin echo with fat saturation and STIR, axial T1 spin echo and T2 fast spin echo with fat saturation. After the administration of contrast, axial/sagittal/coronal T1 spin echo with fat saturation through the pelvis . COMPARISON: [facility], CT, CT ABDOMEN PELVIS W CON, 12/18/2020, 14:09. FINDINGS: Image quality: Excellent. Bones: The visualized bone marrow demonstrates normal signal on all sequences. The overlying cortex appears intact. No abnormal intraosseous enhancement. Soft tissues: No superficial soft tissue masses are visualized. The scanned muscles demonstrate normal overall bulk and internal signal. Subcutaneous tissues appear normal as well. Note is made of a dominant right ovarian cyst that has been previously documented, a present on prior CT scanning 12/18/20. This cystic structure measures up to 6.6 cm AP, 4.5 cm transverse, and approximately 4.8 cm craniocaudad. It is simple in character, but has persisted without business change manager time from 12/18/20. There also is a smaller left-sided ovarian cyst, also previously present, and measuring up to 2.2 cm in maximal dimension. Related to the clinical history provided there is a mass lesion that is abnormally enhancing involving the low rectum and anus, seen as a midline and left paramedian mass measuring up to 5.9 cm craniocaudad virtually from the anal verge cephalad. This mass has maximal thickness of up to 2.1 cm best seen on sagittal imaging series 18, image 115. It has a axial dimension of up to 4.1 cm AP, and approximately 2.5 cm transverse. There appears to be a small degree of internal necrosis measuring only approximately 5-6 mm in diameter at the epicenter of this mass. This may represent a site of prior biopsy. On diffusion imaging the lesion is prominently elevated in signal, and direct extension into adjacent structures is not seen. The lesion appears to extend to the low rectal and anal left lateral border, with slight irregularity along that border indicating potential early invasion through the serosa. No adenopathy is seen, no marrow space lesion is identified. . IMPRESSION: Malignant-appearing mass lesion involving the anus and the low margin of the rectum, centered at and just to the left of midline, with a small amount of apparent internal necrosis or fluid sequestered within an area biopsy. No adenopathy or regional metastatic disease is found. Dictated by: Johnny Castellano M.D. on 02/26/2021 at 16:00 Approved by: Johnny Castellano M.D. on 02/26/2021 at 16:22
== END ==
PROVIDERS: PCP Family Medicine; Referring Provider Internal Medicine Hematology & Oncology; Visit Provider Internal Medicine Hematology & Oncology
DX: C21.0 Malignant neoplasm of anus, unspecified (principal)
CPT/HCPCS: 72197

== ENCOUNTER → 2021-03-16 09:19 | Outpatient (CLI) | payer OTHER, SELFPAY ==
[2021-03-16 10:19] LABS: COVID19 -Nasal RAPID Negative (Negative)
--- OUTSIDE RECORDS SUMMARY | 2021-04-27 08:32 | XMS_ITS | Referral Summary ---
:[address] [facility] Address [address] [place] [address] Care Team Providers Name Role Phone Major Sanford MD Primary Care Provider Reason for Referral Consultation (Routine) - Authorized Specialty Diagnoses / Procedures Referred By Contact Refer red To Contact Oncology Diagnoses Squamous cell carcinoma of anus ([facility]) Kenya Wilkes MD [address] [place] [id number] [place], [place] Phone: [phone] Referral ID Status Reason Start Expiration Visits Visits Date Date Requested Authorized [id number] Authorized Specialty 04/22/2021 11/05/2021 7 7 Services Required Scheduling Instructions [facility], Dr Wilkes Pt finished radiation on 05/04 and needs to see Dr Wilkes 05/07 w/labs Encounter Details Date Type Department Care Team Description 04/22/2021 Orders Only [facility] Jerry Wilkes MD Squamous cell Oncology [address] carcinoma of anus [address] [place] [address], [address] ([facility]) ([facility]) [facility] [address] [place], [place] (Primary Dx) [place] [phone] Allergies Active Allergy Reactions Severity Noted Date Comments Codeine Rash High 08/18/2012 documented as of this encounter (statuses as of 04/24/2021) Medications Medication Sig Dispensed Refills Start Date End Date Status traMADol (ULTRAM) 50 mg 100 mg 2 (two) 0 03/09/2019 Active tablet times a day zinc 50 mg tablet 0 Ac tive vitamin E 400 unit Take 400 Units 0 Active capsule by mouth daily lidocaine (LIDODERM) 5 as needed 0 06/07/2019 Active % patch fluticasone propionate as needed 0 04/06/2019 Active (FLONASE) 50 mcg/actuation nasal spray ascorbate Take 1,000 mg 0 Active calcium/bioflavonoid by mouth 2 (EBEN-C WITH (two) times a BIOFLAVONOIDS ORAL) day KRILL OIL ORAL Take 350 mg by 0 Active mouth daily prochlorperazine Take 1 tablet 30 tablet 2 03/13/2021 Active (COMPAZINE) 10 mg (10 mg total) tabletIndications: by mouth every Squamous cell carcinoma 6 (six) hours of anus ([facility]) as needed for nausea LORazepam (ATIVAN) 0.5 Take 1 tablet 30 tablet 2 03/13/2021 Active mg tabletIndications: (0.5 mg total) Squamous cell carcinoma by mouth every of anus ([facility]) 6 (six) hours as needed (As needed for nausea) May dissolve under tongue. ondansetron ODT Take 1 tablet 30 tablet 2 03/13/2021 Active (ZOFRAN-ODT) 8 mg (8 mg total) by disintegrating mouth daily as tabletIndications: needed for Squamous cell carcinoma nausea or of anus ([facility]) vomiting fluorouracil (5-FU) Infuse 7,880 mg 1 Container 0 03/23/2021 Active chemo infusion - for into a venous home useIndications: catheter Over Squamous cell carcinoma 96 hr of anus ([facility]) vfimtkgcdzDMTVI-bffr-ah Swish and 300 mL 3 03/30/2021 Active g swallow 5-15ml tstejohec-kmzljd-dkydta 15 minutes ine prior to eating suspensionIndications: and as needed. Squamous cell carcinoma of anus ([facility]) mupirocin (BACTROBAN) 2 Apply to 30 g 2 04/15/2021 Active % ointmentIndications: affected area Squamous cell carcinoma BID of anus ([facility]) lidocaine (XYLOCAINE) 2 0 03/31/2021 Active % solution viscous solution fluorouracil (5-FU) Infuse 7,880 mg 1 Container 0 04/20/2021 Active chemo infusion - for into a venous home use catheter Over 96 hr silver sulfadiazine Apply to 85 g 0 04/22/2021 Active (SILVADENE) 1 % affected area creamIndications: twice a day. 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 CRP of 0.6 mg/dL and ESR of 4 on 12/19/18 ? JAZIEL, rheumatoid factor and anti-CCP negative on 12/19/18 RADIOLOGY: [facility] ? Left wrist films on 12/16/18? report from [facility] states mild soft tissue swelling left wrist predominantly over dorsal carpal and distal radial/ulnar region. Otherwise normal left wrist. ? Right hand films on 01/23/19? report from [facility] states slight degenerative change of the hand and wrist primarily involving the interphalangeal joint of the thumb without signific ant progression since August 2017. Deta il states 3 x 7 mm interosseous cyst of distal medial capitate and 2 mm cyst of scaphoid. Slight cystic change also of distal first metacarpal. Gross mineralizati on is unremarkable. Surrounding soft tis sues are normal. Slight spurring of DIP joints of the fingers with more significant spurring of the IP joint of thumb with narrowing and subchondral cystic change RADIOLOGY: ? Cervical spine films on 02/18/16? loss of normal lordosis with mild degeneration of C4-C6. Fusion is noted at C3/C4 especially anteriorly ? Lumbar spine MRI on 08/19/16? posterior disc protrusion from L3-S1 with degenerative disc disease at those levels but more predominantly at L5/S1 no spinal fusion is noted and also no bony edema is n oted outside of mildly around the endpla yudelka of L5/S1 on STIR images RHEUMATOLOGY LABS: Component Value Date/Time CRP 0.7 (H) 03/30/2019 1039 SEDRATE 19 03/30/2019 1039 URICACID 3.6 03/30/2019 1039 RF <10.0 03/30/2019 1039 CCPIGGIGA 2 03/30/2019 1039 RHEUMATOID <0.20 03/30/2019 1039 JAZIEL Negative 03/30/2019 1039 JAZIEL Negative 03/30/2019 1039 HLA Negative 03/30/2019 1039 RADIOLOGY: ?? Xr Cervical Spine With Obliques Resul t Date: 03/30/2019 IMPRESSION: Loss of lordosis and multilevel degenerative change Throughout the cervical spine. Reviewed by: Vinay VARGAS Interpreted: Darnell More MD on 03/30/2019 at 11:12 Approved by: Josseline More M.D. on 03/30/2019 at 15:09 ?? Xr Lumbar Spine With Obliques Result Date: 03/30/2019 IMPRESSION: Multilevel degenerative change, most notably at L5-S1 level. Reviewed by: Vinay VARGAS Interpreted: Josseline More MD on 03/30/2019 at 11:11 Approved by: Josseline More M.D. on 03/30/2019 at 15:09 ?? Xr Sacroiliac Joints 3+ Views Result Date: 03/30/2019 IMPRESSION: Mild bilateral sacral SI joint osteophytes. No evidence of bone erosion or ankylosis. Reviewed by: Ronen Mayen M.D. on 03/30/2019 at 11:43 Approved by: Ronen Mayen M.D. o n 03/30/2019 at 11:50 ?? Xr Knee 4+ Views Bilateral Result Eugenio e: 03/30/2019 IMPRESSION: Minimal early bilateral knee joint degeneration. Reviewed by: Vinay VARGAS Interpreted: Josseline More MD on 03/30/2019 at 11:10 Approved by: Josseline More M.D. on 03/30 at 15:09 ?? MRI of the left hand on 05/08/19 - rep ort: 1. Intraosseous cyst formation involving left second metacarpal head as above, no abnormal intraosseous enhancement. No definite bony erosive changes. 2. Fin ding is suggestive of tenosynovitis invo lving the extensor carpi ulnaris tendon at the level of proximal carpal row. No other area of abnormal soft tissue enhancement is seen. Images visualized on 06/14/19 and agree with radiology ?? MRI of the right hand on 05/08/19 - re port: IMPRESSION: 1. Findings suggestive of low-grade tenosynovitis over dorsal aspect of extensor tendons as described above. 2. No marrow edema. No gross bony e rosive changes. No evidence of tendon or ligament rupture. Images visualized on 06/14/19 and agree with radiology Abnormal findings on diagnostic imaging of other speci fied body structures 03/30/2019 documented as of this encounter (statuses as of 04/24/2021) Social History Tobacco Use Types Packs/Day Years Used Date Former Smoker Cigarettes 1 40 Smokeless Tobacco: Never Used Alcohol Use Standard Drinks/Week Comments Never 0 (1 standard drink = 0.6 oz pure alcoho l) Alcohol Habits Answer Date Recorded How often do you have a drink containing alcohol? Never 03/30/2019 How many drinks containing alcohol do you have on a typical Not asked day when you are drinking? How often do you have six or more drinks on one occasion? No t asked Sex Assigned at Date Recorded Not on file Job Start Date Occupation Industry Not on file Not on file Not on file documented as of this encounter Progress Notes Robyn Roberts RN - 04/22/2021 3:10 PM PDT Pt wishes to refer back to Dr Wilkes at [facility] instead of seeing him at [facility]. Referral entered. documented in this encounter Plan of Treatment Upcoming Encounters Date Type Specialty Care Team Description 04/24/2021 Appointment Radiation Oncology Records Technician, General 04/27/2021 Appointment Radiation Oncology Records Technician, General 04/28/2021 Appointment Radiation Oncology Records Technician, General 04/29/2021 Appointment Radiation Oncology Records Technician, General 04/30/2021 Appointment Radiation Oncology Records Technician, General 05/01/2021 Hospital Encounter Radiation Oncology Records Technician, Gener al Arrived 05/01/2021 Appointment Radiation Oncology Records Technician, General 05/04/2021 Appointment Radiation Oncology Records Technician, General 05/08/2021 Office Visit Oncology Kenya Wilkes M D [address] [place] [phone] (Wo rk) Scheduled Referrals Name Type Priority Associated Diagnoses Order S chedule XTRNL Referral to Outpatient Referral Routine Squamous cell Or dered: Oncology carcinoma of anus 04/22/2021 (CMS/HCC) (CMS-HCC) documented as of this encounter Visit Diagnoses Diagnosis Squamous cell carcinoma of anus (CMS-HCC ) - Primary Malignant neoplasm of anus, unspecified site documented in this encounter Insurance Payer Benefit Plan / Subscriber ID Effective Dates Phone Addre ss Type Group TAMIKA LUNDBERG [id number] 2017-Present [phone] [address] [place] [address] documented as of this encounter Advance Directives Documents on File Type Date Recorded Patient Psychology Fellow Explanati on Advance Directives and Living Will Care Teams Limnology Teacher Relationship Specialty Start Date End Date Major Sanford MD PCP - General Family Medicine 03/01/21 [address] [facility] [address] [place] [address] documented as of this encounter
== END ==
PROVIDERS: PCP Family Medicine; Visit Provider Surgery
DX: Z01.812 Encounter for preprocedural laboratory examination (principal); Z20.822 Contact with and (suspected) exposure to COVID-19; C21.0 Malignant neoplasm of anus, unspecified; Z68.26 Body mass index [BMI] 26.0-26.9, adult
CPT/HCPCS: 87635; 99212; C9803

== ENCOUNTER 2021-03-17 06:37 | Day surgery (SDC) | payer OTHER, SELFPAY ==
[2021-03-11 07:35] VITALS: BMI 27.7
[2021-03-17] VITALS (9 sets, daily range): BP systolic 132–162; BP diastolic 64–81; PULSE 72–82; RESP 8–18; TEMP 35.9–36.6; O2SAT 94–99; BMI 27.7
--- NOTE | 2021-03-17 | DI.RAD.S_ITS ---
PROCEDURE: XR CHEST 1V INDICATIONS: POST OP TECHNIQUE: One view of the chest was acquired. COMPARISON: [facility], CT, CT LUJAN, 03/09/2021, 14:53. FINDINGS: Surgical changes and devices: Port-A-Cath from right-sided approach takes a superior coarse, and then curves inferiorly terminating at approximately the confluence of the right and left brachiocephalic veins. A tubular device with a metallic tip is present over the lateral left chest, uncertain utility.. Lungs and pleura: Lungs are abnormal with several bands of vertical radiodensity at the medial lung bases, potentially mild or early pneumonia. Linear atelectasis also could produce this appearance.. No pleural effusions or pneumothorax. Mediastinum: Mediastinal contours appear normal. Heart size is normal. Bones and chest wall: No suspicious bony lesions. Overlying soft tissues appear unremarkable. IMPRESSION: Port-A-Cath as discussed. No pneumothorax after Port-A-Cath placement. Linear scarring, atelectasis or pneumonia medial lung bases bilaterally, mild in severity. Dictated by: Johnny Castellano M.D. on 03/17/2021 at 9:43 Approved by: Johnny Castellano M.D. on 03/17/2021 at 9:45
[2021-03-17] MEDS: LACTATED RINGERS 1,000 ML 100 ML IV (07:20)
--- NOTE | 2021-03-17 07:57 | PM.PREOP ---
Pre-operative Note Interval Note History & Physical reviewed/Exam performed by Physician: Yes Changes to H&P: No
[2021-03-17] MEDS: CEFAZOLIN 1 GM VIAL 2 GM IV (08:00)
--- NOTE | 2021-03-17 08:12 | SUR.OPER ---
Supine on padded OR bed, head on pillow, arms padded and tucked at sides, legs uncrossed, safety belt at thigh, tape over blanket over lower legs .
[2021-03-17] MEDS: BUPIVACAINE 0.25% (PF) VIAL 30 ML INJ (08:17)
[2021-03-17] MEDS: HEPARIN 5,000 UNIT, SODIUM CHLORIDE 0.9% 50 ML IV (08:18)
--- NOTE | 2021-03-17 08:46 | PM.OP.1 ---
Operative Date/Time/Diagnoses Date of procedure: 03/17/21 Time of procedure: 08:47 Pre-op diagnosis: Anal squamous cell carcinoma Post-op diagnosis: same Procedure & Clinicians Procedure: Port-A-Cath insertion Same procedure as scheduled: Yes Indications: Anal squamous cell carcinoma Surgeon: Jarrett Berry Click Yes if Unassisted: Yes Anesthesia Type: General Operative Notes Findings: Fluoroscopy demonstrates the tip of the catheter within the SVC. Chest x-ray is pending. Device flushes and withdraws easily Specimen(s): none sent Estimated Blood Loss (mL): 10 Procedure in detail: Patient was brought to the operating room placed supine on table. Bilateral lower extremity compressive devices were applied. General anesthesia was induced and he was intubated with an LMA. She was then prepped and draped in usual sterile fashion. Time-out was performed ensure the correct patient procedure necessary equipment within the operating room. She received 2 g of Ancef prior to incision. Under ultrasound guidance the right internal jugular vein was accessed under direct visualization. The guidewire was then threaded through the needle. Its placement was then confirmed using fluoroscopy. The dilator was then placed over the guidewire. The catheter was then inserted through the sheath. Placement was again confirmed with fluoroscopy. A subcutaneous pocket was made in the right chest wall. The tunneler device was used to move the catheter from the neck to the chest pocket. The port was attached after it was primed with heparined saline. The port was tested to ensure that it flushed easily and had good blood return. The port was then secured to the underlying fascia using interupted Ethibond suture. Hemostasis was achieved. The wound was irrigated with sterile saline. The subcutaneous tissues were reapproximated with the 3 0 Vicryl and then skin closed with 4-0 Monocryl. The skin was sealed with Dermabond. Patient tolerated procedure well. The sponge and instrument count at the end operation was correct. Patient emerged from general anesthesia was extubated and taken to the postoperative care unit in stable condition Complications: none Post-operative Condition: stable Disposition: same day surgery
== END 2021-03-17 09:25 | disposition home or self-care (01) ==
PROVIDERS: PCP Family Medicine; Referring Provider Surgery; Visit Provider Surgery
PROC: (CPT 36561; principal; 2021-03-17 07:45)
DX: C21.0 Malignant neoplasm of anus, unspecified (principal); F17.210 Nicotine dependence, cigarettes, uncomplicated
CPT/HCPCS: 36561; 71045; 76000; C1788; J0690; J1100; J1644; J2405; J2704; J3010

== ENCOUNTER → 2021-06-09 09:20 | Outpatient (CLI) | payer OTHER, SELFPAY ==
[2021-06-09 10:10] LABS: COVID19 -Nasal RAPID Negative (Negative)
== END ==
PROVIDERS: PCP Family Medicine; Referring Provider Surgery; Visit Provider Surgery
DX: Z01.812 Encounter for preprocedural laboratory examination (principal); Z20.822 Contact with and (suspected) exposure to COVID-19
CPT/HCPCS: 87635

== ENCOUNTER 2021-06-10 10:38 | Day surgery (SDC) | payer OTHER, SELFPAY ==
[2021-06-05 10:45] VITALS: BMI 26.7
[2021-06-10] VITALS (8 sets, daily range): BP systolic 128–164; BP diastolic 67–85; PULSE 66–80; RESP 15–48; TEMP 36.4–36.6; O2SAT 97–98; BMI 25.5
[2021-06-10] MEDS: LACTATED RINGERS 1,000 ML 100 ML IV (11:33)
--- NOTE | 2021-06-10 12:34 | P.HP_ITS ---
History of Present Illness History of Present Illness Date Patient Seen: 06/10/21 Time Patient Seen: 12:35 Chief complaint: PORT REMOVAL Narrative: 60-year-old female with anal squamous cell carcinoma here for Port-A-Cath removal. She has completed chemo and radiation therapy. No catheter related issues. She is overall feeling well today. Patient History Medical History Arthritis Headache, migraine Hearing loss History of sinus problem Surgical History History of colonoscopy (12/11/20) History of dental surgery History of surgery (03/17/21) Hx of hemorrhoidectomy (01/20/21) Family & Social History Family History Father Colon cancer Hypertension Mother Hypertension Son Gallstones Social History: household members spouse Tobacco & Substance use: Tobacco type e-cigarettes Smoking Status Former smoker alcohol intake former alcohol intake frequency holiday/special occasion Substance Use Type does not use Meds Home Medications and Allergies Home Medications Medication Instructions Recorded Confirmed Type tramadol 50 mg tablet 100 mg PO BID PRN 11/24/20 06/10/21 History vitamin B complex (B 1 tab PO DAILY 11/24/20 06/05/21 History Complex-Vitamin B12) vitamin E 200 unit capsule 200 unit PO DAILY 11/24/20 06/10/21 History ascorbate calcium-bioflavonoid ER 1 tab PO BID 02/19/21 06/10/21 History 1,000 mg-200 mg tab,extended release svhwjnc-bwmcqjvyzmvyd-lzseyyyt 250 1 tab PO PRN PRN 02/19/21 06/05/21 History mg-250 mg-65 mg tablet (Excedrin Extra Strength) fluticasone propionate 50 1 spray INTRANASAL DAILY 02/19/21 06/05/21 History mcg/actuation nasal spray,suspension guaifenesin 600 mg tablet, 1,200 mg PO BID 02/19/21 06/05/21 History extended release 12 hr (Mucinex) ibuprofen 400 mg tablet 400 mg PO Q8H PRN 02/19/21 06/05/21 History melatonin 3 mg capsule 3 mg PO BEDTIME PRN 02/19/21 06/05/21 History omega-3 700 mg-dha and epa 600 1 cap PO DAILY 02/19/21 06/10/21 History mg-fish and krill oil 900 mg capsule ([employer] 4-in-1) Allergies Allergy/AdvReac Type Severity Reaction Status Date / Time codeine Allergy Rash Verified 06/10/21 11:05 Exam Vital Signs (past 8 hours): - 06/10/21 11:10 Temperature 97.6 F Pulse Rate 71 Respiratory Rate 16 Blood Pressure 128/75 Pulse Oximetry 97 Oxygen Delivery Method Room Air Narrative Exam Narrative: Constitutional-She is oriented to person, place and time. No apparent distress Cardiovascular- regular rate, no peripheral edema Pulmonary-unlabored respiratory effort, no audible wheezing Abdominal-soft, non-tender, non-distended Musculoskeletal-no cyanosis or clubbing Neurological-nonfocal, normal strength throughout, normal gait. Skin-warm and dry Assessment & Plan Assessment and plan (1) Port-A-Cath in place: Status: Acute Assessment & Plan narrative: 60-year-old female history of anal squamous cell carcinoma who is here for Port-A-Cath removal. Technical details of the procedure were discussed. Procedural risks including bleeding, infection, embolism were discussed. Her questions have been answered she is in agreement with this plan. Time Spent With Patient Critical Care time: I spent a total of [] minutes of critical care time on this patient's care today; this time is exclusive of procedural time.
[2021-06-10] MEDS: CEFAZOLIN 1 GM VIAL 2 GM IV (12:45)
--- NOTE | 2021-06-10 12:53 | SUR.OPER ---
Supine on padded OR bed, head on pillow, arms secured on padded arm boards at <90 degrees abduction, legs uncrossed, safety belt at thigh, tape over blanket over lower legs.
[2021-06-10] MEDS: BUPIVACAINE 0.25% (PF) VIAL 30 ML INJ (12:57)
--- NOTE | 2021-06-10 13:17 | PM.OP.1 ---
Operative Date/Time/Diagnoses Date of procedure: 06/10/21 Time of procedure: 13:17 Pre-op diagnosis: port a cath Post-op diagnosis: same Procedure & Clinicians Procedure: removal of port a cath Same procedure as scheduled: Yes Indications: port a cath Surgeon: Jarrett Berry Click Yes if Unassisted: Yes Anesthesia Type: General Operative Notes Findings: cather and port removed intact Specimen(s): none sent Estimated Blood Loss (mL): 5 Procedure in detail: Patient brought to the operating room placed supine on the table. Bilateral lower extremity compression devices were applied. She received 2 g of Ancef prior to skin incision. anesthesia was induced and she was intubated with an LMA. 0.25% bupivacaine was infiltrated in the skin overlying the Port-A-Cath. Incision with the knife was made through the skin and subcutaneous tissues. The Port-A-Cath was grasped and the anchoring sutures were removed. A Vicryl suture was then placed around the insertion site of the catheter and this was tied down at that same time that the catheter was withdrawn. The specimen was passed off the field. The wound was irrigated hemostasis was achieved. The subcutaneous tissue was reapproximated using Vicryl suture and skin closed with running Monocryl suture followed by Dermabond and Steri-Strips. Patient emerged from anesthesia and was transferred to the recovery room in stable condition. Complications: none Post-operative Condition: stable Disposition: same day surgery
--- NOTE | 2021-06-10 13:33 | SUR.PHASEI ---
1316 hrs: Pt admitted to PACU breathing unassisted, SPO@ greater than 90% on RA. Report from [facility] and Dr Mcdermott, all questions answered.
== END 2021-06-10 14:19 | disposition home or self-care (01) ==
PROVIDERS: PCP Family Medicine; Referring Provider Surgery; Visit Provider Surgery
PROC: (CPT 36590; principal; 2021-06-10 12:45)
DX: Z45.2 Encounter for adjustment and management of vascular access device (principal)
CPT/HCPCS: 36590; 82962; J0690; J2405; J2704; J3010

== ENCOUNTER → 2021-07-22 09:39 | Outpatient (CLI) | payer OTHER, SELFPAY ==
[2021-07-22 11:38] LABS: COVID19 -Nasal RAPID Negative (Negative)
== END ==
PROVIDERS: PCP Family Medicine; Visit Provider Surgery
DX: Z01.812 Encounter for preprocedural laboratory examination (principal); Z20.822 Contact with and (suspected) exposure to COVID-19
CPT/HCPCS: 87635; C9803

== ENCOUNTER 2021-07-23 11:26 | Day surgery (SDC) | payer OTHER, SELFPAY ==
--- NOTE | 2021-07-23 | PATH_ITS ---
[facility] Accession Number: [id number] . 01 Material submitted: . anal canal - ANAL CANAL . 02 Diagnosis: Anal Canal, Biopsy: Colorectal mucosa with focal mucosal hyperplasia. No anal squamous mucosa identified. Negative for dysplasia or malignancy. [facility] 07/28/2021 1535 Local . 02 Electronically signed: . Lebron Melchor MD, PhD, Pathologist NPI- [id number] . 01 Gross description: . The specimen is received in formalin, labeled anal canal and consists of four del rosario fragments of soft tissue measuring0.5 x 0.4 x 0.2 cm in aggregate. The specimen is entirely submitted in cassette A1. ([id number]) /MRV 07/24/2021 1230 Local . 02 Pathologist provided ICD-10: Z85.048 . 02 CPT . 073258 Performed at: 01 [facility] [address] [id number] MD Scott Carvajal MD Phone: [phone] Performed at: 02 [facility] [address] [place], [place] [id number] MD Lona Paul MD Phone: [phone]
[2021-07-23 12:10] VITALS: BP 183/84; PULSE 84; RESP 16; TEMP 36.6; O2SAT 97; BMI 27.3
[2021-07-23] MEDS: LACTATED RINGERS 1,000 ML 200 ML IV (12:19)
--- NOTE | 2021-07-23 12:46 | P.HP_ITS ---
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 She is here for flexible sigmoidoscopy for surveillance.. No current complaint Patient History Medical History Arthritis Headache, migraine Hearing loss History of sinus problem Surgical History History of colonoscopy (12/11/20) History of dental surgery History of surgery (03/17/21) Hx of hemorrhoidectomy (01/20/21) Family & Social History Family History Father Colon cancer Hypertension Mother Hypertension Son Gallstones Social History: household members spouse Tobacco & Substance use: Tobacco type e-cigarettes Smoking Status Former smoker alcohol intake current alcohol intake frequency holiday/special occasion Substance Use Type does not use Meds Home Medications and Allergies Home Medications Medication Instructions Recorded Confirmed Type tramadol 50 mg tablet 100 mg PO BID PRN 11/24/20 07/23/21 History vitamin B complex (B 1 tab PO DAILY 11/24/20 07/01/21 History Complex-Vitamin B12) vitamin E 200 unit capsule 200 unit PO DAILY 11/24/20 07/01/21 History ascorbate calcium-bioflavonoid ER 1 tab PO BID 02/19/21 07/01/21 History 1,000 mg-200 mg tab,extended release makrpag-nqvprpcvtkagc-cvhuwcgm 250 1 tab PO PRN PRN 02/19/21 07/23/21 History mg-250 mg-65 mg tablet (Excedrin Extra Strength) fluticasone propionate 50 1 spray INTRANASAL DAILY 02/19/21 07/23/21 History mcg/actuation nasal spray,suspension guaifenesin 600 mg tablet, 1,200 mg PO BID 02/19/21 07/23/21 History extended release 12 hr (Mucinex) ibuprofen 400 mg tablet 400 mg PO Q8H PRN 02/19/21 07/23/21 History melatonin 3 mg capsule 3 mg PO BEDTIME PRN 02/19/21 07/23/21 History omega-3 700 mg-dha and epa 600 1 cap PO DAILY 02/19/21 07/23/21 History mg-fish and krill oil 900 mg capsule (app[employer]obi 4-in-1) Allergies Allergy/AdvReac Type Severity Reaction Status Date / Time codeine Allergy Mild Rash Verified 07/01/21 09:25 Exam Vital Signs (past 8 hours): - 07/23/21 12:10 Temperature 97.8 F Pulse Rate 84 Respiratory Rate 16 Blood Pressure 183/84 H Pulse Oximetry 97 Oxygen Delivery Method Room Air Narrative Exam Narrative: Constitutional-She is oriented to person, place and time. No apparent distress Cardiovascular- regular rate, no peripheral edema Pulmonary-unlabored respiratory effort, no audible wheezing Abdominal-soft, non-tender, non-distended Musculoskeletal-no cyanosis or clubbing Neurological-nonfocal, normal strength throughout, normal gait. Skin-warm and dry Assessment & Plan Assessment and plan (1) Anal squamous cell carcinoma: Status: Acute Assessment & Plan narrative: 60-year-old woman history of anal squamous cell carcinoma here for surveillance flexible sigmoidoscopy. Technical details of the procedure were discussed with the patient. Procedural risks including bleeding missed diagnosis intestinal perforation were discussed. Her questions have been answered will proceed Time Spent With Patient Critical Care time: I spent a total of [] minutes of critical care time on this patient's care today; this time is exclusive of procedural time.
[2021-07-23] MEDS: MIDAZOLAM 5 MG/5 ML VIAL IV (12:50)
[2021-07-23] MEDS: fentaNYL 250 MCG/5 ML INJ IV (12:51)
--- NOTE | 2021-07-23 13:04 | PM.OP.COLON ---
Operative Date/Time/Diagnoses Date of procedure: 07/23/21 Time of procedure: 13:04 Pre-op diagnosis: History of anal skin squamous cell carcinoma Post-op diagnosis: same Procedure & Clinicians Study performed: Sigmoidoscopy Same procedure as scheduled: Yes Indications: History of anal squamous cell carcinoma status post radiation and chemotherapy here for surveillance. Surgeon: Jarrett Berry Procedure Notes Procedure in detail: Medications: Conscious sedation using 6mg IV midazolam and 100mcg IV of fentanyl The history and physical was performed/updated and the patient is ASA class is 2. The procedure was discussed in detail with the patient. Potential risks complications including infection, bleeding, missed diagnosis, perforation, need for surgery, and were explained. Their questions were answered and informed consent was obtained. Patient was brought to the procedure room and placed standard monitoring equipment. The patient's vital signs were monitored continuously throughout the entire procedure. Prior to starting time-out was performed. The patient was placed in the left lateral recumbent position. Procedural sedation was administered. The colonoscopy scope was then placed into the anal canal and was advanced to the sigmoid colon. The scope was then carefully withdrawn examining the colon rectum and anal canal. Scope was retroflexed in the rectum. There was no evidence of remaining anal squamous cell carcinoma. There were areas of the scar tissue from her radiation therapy 4 random biopsies of the anal canal were performed with the Jumbo forceps. Patient tolerated procedure well. Sedation time 8 minutes Specimen(s): other (Anal canal) Impression: No evidence of residual anal squamous cell carcinoma Post-procedure Recommendations: Other recommendation(s) (Will notify with biopsy results) Disposition: same day surgery
[2021-07-23 13:08] VITALS: BP 148/68; PULSE 77; RESP 22; TEMP 36.5; O2SAT 96
[2021-07-23 13:12] VITALS: BP 142/76; PULSE 71; RESP 20; O2SAT 95
[2021-07-23 13:17] VITALS: BP 142/75; PULSE 68; RESP 20; O2SAT 95
[2021-07-23 13:22] VITALS: BP 147/74; PULSE 69; RESP 18; TEMP 36.2; O2SAT 95
[2021-07-23 13:29] VITALS: BP 151/78; PULSE 71; RESP 20; TEMP 36.2; O2SAT 95
== END 2021-07-23 13:43 | disposition home or self-care (01) ==
PROVIDERS: PCP Family Medicine; Referring Provider Surgery; Visit Provider Surgery
PROC: 0DJD8ZZ Inspection of Lower Intestinal Tract, Via Natural or Artificial Opening Endoscopic (ICD-10-PCS; CPT 45378; principal; 2021-07-23 13:00)
DX: Z08 Encounter for follow-up examination after completed treatment for malignant neoplasm (principal); Z85.048 Personal history of other malignant neoplasm of rectum, rectosigmoid junction, and anus
CPT/HCPCS: 45380; 99152; J2250; J3010